=== PATIENT | female | born 2000 | race African-American/Black ===

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

== ENCOUNTER 2019-01-30 17:30 | Outpatient (CLI) | payer OTHER ==
[~2019-01-30] VITALS: Ht 158.8 cm; Wt 77.7 kg
[2019-01-30 17:48] VITALS: BP 112/66
[2019-01-30 18:13] VITALS: BP 108/55
--- NOTE | 2019-01-30 18:38 | IPNPDOC ---
Obstetrical Progress Note Date of Service Jan 30, 2019 Subjective [facility] L&D Observation Note S: Ms. Garcia is a 18yo at 39+3wks who presents today with c/o DFM throughout the day today. Pt states that she last felt movement this morning, but has been unable to elicit 10 movements in the 2 hours that the fetus is usually the most active. Pt states she has been drinking water throughout the day and started to drink a Powerade when she came into triage. Pt states that once monitoring started that she fetus started to become very active. Pt denies LOF/VB/CTX. O: VS-WNL, afebrile GEN: A&Ox3, NAD ABD: gravid, NTTP; soft, no guarding or rebound tenderness FHR: 140s moderate variability; + accelerations, no decels noted TOCO: irregular ctx present, pt denies feeling US: VTX, adequate fluid pockets, LLQ 3.1cm SDP A/P: 18yo at 39+3wks, Category I FHT, adequate FM -Discharge to home with return precautions -Reviewed [facility] instructions -Keep appointment scheduled for next week in clinic Objective Vital Signs Date Time Temp Pulse Resp B/P (MAP) Pulse Ox O2 Delivery O2 Flow Rate FiO2 01/30/19 18:13 92 16 108/55 (72) 01/30/19 17:48 97.2 LESLIE LOMELI CNM Jan 30, 2019 18:38
== END 2019-01-30 18:35 | disposition home or self-care (01) ==
LOC: M LDO 17:30
PROVIDERS: ATTEND Registered Nurse Maternal Newborn
DX: O36.8131 Decreased fetal movements, third trimester, fetus 1 (principal); Z3A.39 39 weeks gestation of pregnancy
CPT/HCPCS: 59025; 76815; G0378; G0463

== ENCOUNTER 2019-01-31 06:44 | Inpatient (IN) | payer OTHER ==
[~2019-01-31] VITALS: Ht 157.5 cm; Wt 77.9 kg
[2019-01-31] VITALS (37 sets, daily range): BP systolic 94–184; BP diastolic 49–76
[2019-01-31] MEDS ORDERED: PENICILLIN G POTASSIUM IV 5 MU in D5W MINI-BAG PLUS 100 ML IV STA (07:34)
[2019-01-31] MEDS ORDERED: LACTATED RINGER'S 1000 ML IV STA (07:34)
[2019-01-31] MEDS: LR 1,000 ML IV SCH ×2 (08:00→13:53)
[2019-01-31 08:12] LABS: HEMATOCRIT 37.6 % (36.0-47.0); HEMOGLOBIN 12.9 g/dl (12.0-15.5); MEAN CORPUSCULAR HEMOGLOBIN 31.1 pg (27.0-33.0); MEAN CORPUSCULAR HGB CONC 34.3 g/dl (32.0-36.5); MEAN CORPUSCULAR VOLUME 90.6 fl (80.0-96.0); PLATELET COUNT, AUTOMATED 356 10^3/uL (150-450); RED BLOOD COUNT 4.15 10^6/uL (4.00-5.40); WHITE BLOOD COUNT 11.8 10^3/uL (4.0-10.0)
[2019-01-31] MEDS ORDERED: OXYTOCIN 30 UNITS IN 0.9% NaCl 500ML IV BAG (J2590) As Ordered ONE (08:19)
--- NOTE | 2019-01-31 08:54 | HPEPDOC ---
Obstetrical History & Physical General Date of Admission Jan 31, 2019 at 07:38 History of Present Illness Anabela is a 18yo with SIUP at 39w4d by lmp c/w 9wk u/s presenting this m orning with regular, painful ctx. No vaginal bleeding, no LOF. Good movement. No f/c/n/v. 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 Sex of Infant: Male (6lb9oz, iol for GHTN) [employer] History: No pertinent history Past Medical History Medical History Overweight (starting BMI 26), seasonal allergies Surgical History: Denies/None Family History Significant Family History: No pertinent family hx Social History Marital Status: Family situation: Spouse/partner home Psychosocial History: No pertinent psych hx * Smoker: non-smoker Alcohol: Denies Drugs: denies Imunizations Tdap status: current Influenza Status: current Allergies Coded Allergies: FISH (Verified Allergy, Unknown, 01/30/19) apple (Verified Allergy, Unknown, 01/30/19) Medications Scheduled Pnv No.95/Ferrous Fum/Folic AC ( Vitamin Tablet) 1 Tab Tab, 1 TAB PO DAILY Physical Examination Physical Examination GENERAL: Alert and oriented times three. ABDOMEN: Gravid and non-tender to touch. FETUS: Is vertex (VTX) by sterile vaginal examination (SVE) per Dr. Agustin EXTREMITIES: trace pedal edema BLE Vital Signs/I&O Vital Signs Date Time Temp Pulse Resp B/P (MAP) Pulse Ox O2 Delivery O2 Flow Rate FiO2 01/31/19 07:07 98.4 78 18 122/59 (80) Laboratory Data [facility] Laboratory Tests 2 01/31/19 08:05: Serology Scanned Report Hepatitis B Testing CBC/BMP Pertinent Laboratoy Data Blood Type: O+ RBC Antibody Screen: Negative HIV: Negative Hepatitis B: Negative Hepatitis C: Unknown Rapid Plasma Reagin: Nonreactive Rubella: Immune Varicella: Nonreactive Chlamydia/Gonorrhea: Negative Group B Streptococcus: Positive Cystic Fibrosis: Negative Glucose Tolerance Test: 104 Anatomy Ultrasound Ultrasound Date: November 07, 2018 Placenta Location: Anterior Normal Anatomy: Yes (tiny EIF 0.3cm) Placenta Previa: No Steroid Therapy Steroid Therapy: No Vaginal Examination Dilation: 5 cm Effacement: 70% Station: -2 Cervical Consistency: Soft Cervical Position: Anterior Presentation: Cephalic presentation Assessment Heart Rate (FHR): 120 Variability: Moderate Accelerations: Positive Decelerations: None Tocometer Contractions: Yes Frequency: regular, every 3-7 min. Duration: greater than 60 seconds Strength: palpated as strong Assessment/Plan Assessment Anabela is a 18yo with SIUP at 39w4d by lmp c/w 9wk u/s admitted to L&D for active labor with SCE 5/75/-2, ctx q5min. Cat I FHRT. Vitals wnl. Ceph by SCE per Dr. Agustin. GBS positive. 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 Impregnator Helper and consent. Diet: clear liquids Group B Streptococcus (GBS) positive: PCN per protocol Labs and intravenous (IV) per unit protocol. Lactated Ringers (LR): Bolus 1000 mL, then at 125 mL/hr. Anticipate normal spontaneous delivery () Candidate for epidural if desired MD Gabriela Arce Katrina D MD Jan 31, 2019 08:54
[2019-01-31] MEDS ORDERED: FENTANYL 2MCG/ML ROPIVACAINE 0.2% IN 0.9% NACL 100ML IVBAG As Ordered ONE (09:32)
[2019-01-31] MEDS ORDERED: EPIDURAL/PCA KEYS XX PRN (11:00)
[2019-01-31] MEDS ORDERED: REFRIGERATOR IV KEYS XX PRN (11:00)
[2019-01-31] MEDS ORDERED: NALOXONE INJ 0.4 MG/1 ML VIAL (J2310) IV PRN (11:00)
[2019-01-31] MEDS ORDERED: ONDANSETRON 4MG/2ML VIAL (J2405) IV PRN (11:00)
[2019-01-31] MEDS ORDERED: diphenhydrAMINE INJ 50MG/ML VIAL (J1200) IV PRN (11:00)
[2019-01-31] MEDS ORDERED: LACTATED RINGER'S 1000 ML IV PRN (11:00)
[2019-01-31] MEDS ORDERED: EPIDURAL COMMENT XX SCH (11:00)
[2019-01-31] MEDS ORDERED: FENTANYL/ROPIVACAINE/NACL BAG 100 ML EPIDURAL SCH (11:00)
[2019-01-31] MEDS ORDERED: PENICILLIN G POTASSIUM IV 2.5 MU in APPROPRIATE DILUENT 1 EA IV SCH (12:30)
--- NOTE | 2019-01-31 13:21 | IPNPDOC ---
Text Note Date of Service The patient was seen on 01/31/19. NOTE Intrapartum Note Pt comfortable with epidural. Has now received 2 doses of PCN for GBS positive. Vitals wnl. SCE 8/C/-1, AROM with clear fluid noted- scant Cat I-II FHRT with bl 125, +accels, occasional small variable decels, mod emily Will continue to closely observe Plan to recheck in 2hr or earlier as indicated Safe to proceed Dr. Brenda Ochoa MD VS,Almas, I+O VS, [place]mas, I+O Laboratory Tests 01/31/19 08:03 Red Blood Count 4.15, Mean Corpuscular Volume 90.6, Mean Corpuscular Hemoglobin 31.1, Mean Corpuscular Hemoglobin Concent 34.3, Red Cell Distribution Width 12.2 Vital Signs Date Time Temp Pulse Resp B/P (MAP) Pulse Ox O2 Delivery O2 Flow Rate FiO2 01/31/19 12:42 98.0 76 18 109/54 (72) Brenda Ochoa MD Jan 31, 2019 13:21
[2019-01-31] MEDS: ePHEDrine SULFATE 25 MG/5 ML(5MG/ML) SYRINGE IV PRN ×2 (13:45→13:50)
[2019-01-31] MEDS ORDERED: OXYTOCIN DRIP 30 UNITS in APPROPRIATE DILUENT 1 EA IV SCH (16:39)
[2019-01-31] MEDS ORDERED: DOCUSATE SODIUM 100 MG CAP PO PRN (16:45)
[2019-01-31] MEDS ORDERED: ACETAMINOPHEN TAB 650MG DOSE (2X325MG) PO PRN (16:45)
[2019-01-31] MEDS ORDERED: DIBUCAINE 1% OINTMENT 30GM TOP PRN (16:45)
[2019-01-31] MEDS ORDERED: RHOGAM 300 MCG (1500 IU) INJ (J2790) IM SCH (16:45)
[2019-01-31] MEDS ORDERED: IBUPROFEN 600 MG TAB PO PRN (16:45)
[2019-01-31] MEDS ORDERED: MEASLES,MUMPS,RUBELLA VACCINE INJ (MMR-II) (90707) SC SCH (16:45)
--- NOTE | 2019-01-31 19:58 | DNPDOC ---
[facility] Delivery Note Delivery Note DATE OF DELIVERY: 31 January 2019 PREDELIVERY DIAGNOSIS: 39w4d weeks' gestation and labor. POST DELIVERY DIAGNOSIS: Delivered. PROCEDURE: Spontaneous vaginal delivery CUSTOMER SUCCESS REPRESENTATIVE: Dr. Brenda Ochoa MD ANESTHESIA: epidural ESTIMATED BLOOD LOSS: 200 mL. FINDINGS: 3210g, male , Score 8/9 DELIVERY SUMMARY: Anabela is a 18yo [id number] s/p uncomplicated at 39w4d after being admitted in active labor. She received an epidural and progressed to C/C/0 at which point she began to push. She had received 2 doses of IV PCN for GBS positive. After approximately 1 hour of pushing, head delivered straight OP, restituted LOP (meconium stained fluid noted at that point, prior it had been clear). Right anterior shoulder delivered followed by posterior shoulder and corpus. Infant vigorous with spontaneous cry, apgars 8/9, placed on maternal abdomen, nose and mouth suctioned. Cord was clamped x2 and cut by FOB. Cord blood obtained for MBT O positive. With fundal massage and traction on the cord, placenta delivered spontaneously and intact with 3 vessel centrally inserted cord. Bimanual uterine massage performed and pitocin given per protocol with fundus then firm at u-2cm. Inspection of perineum and vagina revealed no lacerations. Mom and infant were doing well when I left the room. MD Gabriela Arce Katrina D MD Jan 31, 2019 19:52
[2019-01-31] MEDS: IBUPROFEN 800 MG TAB PO PRN (20:27)
[2019-01-31] MEDS: ACETAMINOPHEN 500 MG TAB PO PRN (22:08)
[2019-02-01] MEDS: IBUPROFEN 800 MG TAB PO PRN ×2 (05:27→14:08)
[2019-02-01] MEDS: ACETAMINOPHEN 500 MG TAB PO PRN (05:27)
[2019-02-01 06:00] VITALS: BP 119/69
[2019-02-01] MEDS ORDERED: ANUSOL HC CREAM 30GM TOP PRN (06:15)
[2019-02-01] MEDS: PRENATAL VITAMINS CHEWABLE TABLET PO SCH (08:34)
[2019-02-01 18:00] VITALS: BP 117/77
[2019-02-02 06:21] VITALS: BP 123/58
[2019-02-02] MEDS: PRENATAL VITAMINS CHEWABLE TABLET PO SCH (08:30)
[2019-02-02] MEDS ORDERED: COLA100C5 PO (09:07)
[2019-02-02] MEDS ORDERED: ACET-683 PO (09:07)
[2019-02-02] MEDS ORDERED: IBUP-1022 PO (09:07)
[2019-02-02] MEDS: ACETAMINOPHEN 500 MG TAB PO PRN (11:47)
[2019-02-02] MEDS: IBUPROFEN 800 MG TAB PO PRN (11:48)
== END 2019-02-02 15:05 | disposition home or self-care (01) | DRG 807 ==
LOC: M LDO 06:44 → M LDI 07:38 → M OBS 19:20
PROVIDERS: ADMIT Obstetrics & Gynecology; ATTEND Obstetrics & Gynecology
PROC: 10E0XZZ Delivery of Products of Conception, External Approach (ICD-10-PCS; principal; 2019-01-31)
PROC: 10907ZC Drainage of Amniotic Fluid, Therapeutic from Products of Conception, Via Natural or Artificial Opening (ICD-10-PCS; 2019-01-31)
DX: O99.824 Streptococcus B carrier state complicating childbirth (principal); Z37.0 Single live birth; Z3A.39 39 weeks gestation of pregnancy; O77.0 Labor and delivery complicated by meconium in amniotic fluid; O76 Abnormality in fetal heart rate and rhythm complicating labor and delivery; O99.214 Obesity complicating childbirth; E66.9 Obesity, unspecified